=== PATIENT | female | born 1980 | race Caucasian/White ===

== ENCOUNTER → 2016-11-06 | Day surgery (SDC) | payer BC ==
--- NOTE | 2016-11-06 15:16 | RADIOLOGY REPORT (SQ) ---
EXAM DESCRIPTION: ARTHRO SHOULDER INJECTION; FLUORO/NEEDLE PLACEMENT COMPLETED DATE/TIME: 11/06/2016 2:49 pm REASON FOR STUDY: PAIN IN RIGHT SHOULDER M25.511 PAIN IN RIGHT SHOULDER M75.41 IMPINGEMENT SYNDROM E OF RIGHT SHOULDER COMPARISON: None. FLUOROSCOPY TIME: 18 seconds 1 digital radiographic image saved to PACS. LIMITATIONS: None. PROCEDURE: Procedure, risks, benefits and alternatives explained to patient who then gave written co nsent. The posterior right shoulder was marked and a time out was called for correct procedure verifi cation. Posterior entry site marked using fluoroscopic guidance. Shoulder prepped and draped using sterile technique. Local anesthesia achieved using 5 mL of 1% lidocaine injection. 22 gauge spinal needle introduced into the joint space under direct fluoroscopic visualization. Non-ionic contrast in stilled to confirm intra-articular position. Dilute gadolinium solution then injected. Needle remove d and entry site covered with sterile bandage. No immediate complications noted. TECHNIQUE: Digital images acquired during fluoroscopy and stored on PACS. Patient immediately take n to the MR suite for additional imaging. INJECTION LOCATION: Posterior right shoulder. CONTRAST TYPE AND AMOUNT: 1 mL of Isovue-300 was injected to confirm intra-articular needle placement followed by 10 mL of dilute gadolinium for MR arthrogram IMPRESSION: SUCCESSFUL NEEDLE PLACEMENT AND INJECTION FOR RIGHT SHOULDER MR ARTHROGRAM USING POSTERI OR APPROACH. COMMENT: Quality ID [id number]: Final reports for procedures using fluoroscopy that document radiation exp osure indices, or exposure time and number of fluorographic images (if radiation exposure indices are not available) TECHNICAL DOCUMENTATION: JOB ID: [id number] [employer]- All Rights Reserved
--- NOTE | 2016-11-07 08:27 | RADIOLOGY REPORT (SQ) ---
EXAM DESCRIPTION: MRI RT UPPER JOINT WITH COMPLETED DATE/TIME: 11/06/2016 4:57 pm REASON FOR STUDY: PAIN IN RIGHT SHOULDER M25.511 PAIN IN RIGHT SHOULDER M75.41 IMPINGEMENT SYNDROM E OF RIGHT SHOULDER COMPARISON: None. TECHNIQUE: Right shoulder images acquired and stored on PACS. Oblique coronal, oblique sagittal, and axial imaging to include fat sensitive sequences as T1, water sensitive sequences as FST2/STIR, and contrast sensitive sequences as FST1. LIMITATIONS: Motion artifact on some of the sequences necessitating repeats. Relatively good diagno stic quality allowing for this. FINDINGS: JOINT DISTENTION: Mildly suboptimal joint distention due to a posterior and anterior extra vasation. No loose bodies. BONE MARROW AND CORTEX: Normal. AC JOINT: Mild regional bone edema. Slight DJD. Type 1 acromion without spurs or down slope. GLENOHUMERAL JOINT: No focal chondral lesions. No subluxation or dislocation. ROTATOR CUFF: Relatively intact without high-grade or full-thickness tear. There is cuff muscle atro phy in the infraspinatus. LABRUM AND BICEPS LABRAL COMPLEX: Limiting internal rotation. Abnormal undercutting of the labrum balderas ggests at least a type 2 tear. Biceps tendon in normal location. Slightly limited assessment due to internally rotated shoulder positioning. INFERIOR LABRAL COMPLEX: Tear along the posterior labrum. Associated tail of fluid tracks back to wh at appears to be a sizable paralabral cyst or ganglion, see below. ADJACENT SOFT TISSUES: Large subtle bag shaped hyperintense T2 paralabral cyst or ganglion measures a t least 6 cm in transverse dimension. This extends from posteriorly deep to the infraspinatus muscle through the spinoglenoid and suprascapular notch regions to project anteriorly and medially. OTHER: No other significant finding. IMPRESSION: 1. Large (at least 6 cm) ganglion or paralabral cyst extends through the spinoglenoid an d suprascapular notches. There is associated atrophy of the infraspinatus muscle. 2. Probable post erior labral tear. Probable superior labral tear. 3. No evidence of cuff tear. TECHNICAL DOCUMENTATION: JOB ID: [id number] [employer]- All Rights Reserved
== END ==
LOC: RAD 13:37
PROVIDERS: ATTEND Physician Assistant
PROC: BP08ZZZ Plain Radiography of Right Shoulder (ICD-10-PCS; principal; 2016-11-06)
DX: M75.41 Impingement syndrome of right shoulder (principal); M25.511 Pain in right shoulder
CPT/HCPCS: 73222; 77002; 23350; A9576